=== PATIENT | female | born 1995 | race Caucasian/White ===

== ENCOUNTER 2017-12-05 12:58 | Inpatient (IN) | payer SELFPAY ==
[~2017-12-05] VITALS: Ht 160 cm; Wt 64.0 kg
[2017-12-05 13:04] VITALS: BP 129/85
--- NOTE | 2017-12-05 13:14 | NUR ---
PT AMBULATES TO BED 4
--- NOTE | 2017-12-05 13:21 | NUR ---
22YO F BIB BF W/C/O ABD PAIN X3 DAYS , RLQ PAIN TENDER TO PALPATION, SOFT ABD , N/D X3DAYS WITH 5 EPISODES OF WATERY STOOLS TODAY. PT DENIES ANY CP, SOB, VOMITING, FEVER OR COUGH AT THIS TIME, LS CLEAR THROUGHOUT, RR EVEN AND UNLABORED, THACHYCARDIA WITH HR 112. PT POSITIONED FOR COMFORT. ER MD MADE AWARE. WILL CONTINUE TO MONITOR. PAIN 11/04
--- NOTE | 2017-12-05 14:30 | NUR ---
pt. resting comfortably in bed , rr even and unlabored. at bedside. will continue to monitor.
[2017-12-05] MEDS ORDERED: NACL 0.9% 1,000 ML IV ONE (14:42)
[2017-12-05] MEDS ORDERED: NACL 0.9% 1,000 ML IV SCH ×2 (14:42)
[2017-12-05] MEDS ORDERED: MORPHINE SULFATE 2 MG/ML SYR IVP ONE (14:45)
[2017-12-05] MEDS ORDERED: ONDANSETRON 4 MG/2 ML VIAL IVP ONE (14:45)
[2017-12-05] MEDS ORDERED: metroNIDAZOLE 500 MG/NS PREMIX 100 ML IV ONE (14:45)
[2017-12-05] MEDS ORDERED: KETOROLAC 30 MG/ML VIAL IVP ONE (14:45)
[2017-12-05 15:02] LABS: BASOPHILS % (AUTO) 0.2 % (0.0-2.0); HEMATOCRIT 41.2 % (36-48); LYMPHOCYTES # (AUTO) 1.2 K/uL (2.5-16.5); LYMPHOCYTES % (AUTO) 15.7 % (20.5-51.1); MEAN CORPUSCULAR HEMOGLOBIN 27 pg (27-31); MEAN CORPUSCULAR HGB CONC 34 g/dL (33-37); MEAN CORPUSCULAR VOLUME 80.9 fL (80-94); MONOCYTES % (AUTO) 13.6 % (1.7-9.3); NEUTROPHILS # (AUTO) 5.2 K/uL (1.8-7.7); NEUTROPHILS % (AUTO) 70.5 % (42.2-75.2); PLATELET COUNT (AUTO) 244 K/uL (140-450); RED CELL DISTRIBUTION WIDTH 13.9 % (11.6-13.7); WHITE BLOOD COUNT (AUTO) 7.4 K/uL (4.8-10.8)
[2017-12-05 15:05] LABS: APPEARANCE,URINE HAZY (CLEAR); BILIRUBIN,URINE 1+ (NEGATIVE); BLOOD, URINE 1+ (NEGATIVE); COLOR,URINE YELLOW (YELLOW); LEUKOCYTE ESTERASE ,URINE NEGATIVE (NEGATIVE); NITRITE, URINE NEGATIVE (NEGATIVE); UGLUCOSE NEGATIVE (NEGATIVE)
[2017-12-05 15:19] LABS: RBC,URINE 0-5 (RARE) /HPF (0-5); WBC,URINE 0-5 (RARE) /HPF (0-5)
--- NOTE | 2017-12-05 15:30 | NUR ---
Pt. sleeping at this time. at bedside. vss. Will continue to monitor. bed in lowest position.
[2017-12-05 15:32] LABS: ANION GAP 13.1 (8-16); CREATININE 0.5 mg/dL (0.6-1.3); POTASSIUM 3.1 mmol/L (3.5-5.1)
[2017-12-05 15:38] LABS: ALBUMIN 3.6 g/dL (3.4-5.0); TOTAL BILIRUBIN 0.5 mg/dL (0.0-1.0)
[2017-12-05] MEDS ORDERED: POTASSIUM CHL 20 MEQ/D5-1/2NS 1,000 ML IV ONE (16:25)
--- NOTE | 2017-12-05 16:30 | NUR ---
PT. IS AWAKE , VSS. RR EVEN AND UNLABORED. BED IN LOWEST POSITION WILL CONTINUE TO MONITOR.
[2017-12-05] MEDS ORDERED: ONDANSETRON 4 MG/2 ML VIAL IM/IVP PRN (17:05)
[2017-12-05] MEDS ORDERED: HYDROcodone/APAP 7.5/325 MG 1 TAB PO PRN (17:05)
[2017-12-05] MEDS ORDERED: DOCUSATE SODIUM 100 MG GELCAP PO PRN (17:05)
[2017-12-05] MEDS ORDERED: ACETAMINOPHEN 325 MG TAB PO PRN (17:05)
--- NOTE | 2017-12-05 18:03 | NUR ---
PT TAKEN TO FLOOR BY JAYSHREE MCKAY AND AUGUSTO HAWKINS
[2017-12-05 18:05] LABS: BARBITURATE, URINE NEG. ng/ml (NEG <=200); BENZODIAZEPINE, URINE NEG. ng/mL (NEG <=200); CANNABINOID, URINE NEG. ng/mL (NEG <=50); COCAINE, URINE NEG. ng/mL (NEG <=300); OPIATE, URINE NEG. ng/mL (NEG <=2000); PHENCYCLIDINE SCREEN,URINE NEG. ng/mL (NEG <=25)
[2017-12-05] MEDS ORDERED: POTASSIUM CHLORIDE 10 MEQ TABER PO SCH (18:07)
[2017-12-05 18:08] LABS: PROTHROMBIN TIME 10.5 secs (10.8-13.4)
[2017-12-05 18:10] VITALS: BP 115/74
--- NOTE | 2017-12-05 18:10 | NUR ---
Patient will be admitted to care of dr. RIVERA . Admited to TELE . Will go to room 125B. Belongings list completed. Report to JAYSHREE CURRAN .
--- NOTE | 2017-12-05 18:10 | NUR ---
PATIENT WAS TRANSFERRED FROM ER. REPORT WAS GIVEN AT BEDSIDE. PATIENT AWAKE, ALERT, AMBULATED SELF TO BED. ASSISTANT PLANT CONTROL OPERATOR WAS PLACED. VS WAS TAKEN, MRSA WAS SWABBED, IV FLUID WAS HUNG PER ORDER. PATIENT WAS ORIENTED TO ROOM, STAFF, AND CALL LIGHT. PLAN OF CARE WAS DISCUSSED WITH THE PATIENT. BED AT LOW POSITION, SIDE RAILS UP. CALL LIGHT WITHIN REACH. FAMILY AT BEDSIDE
[2017-12-05 18:16] LABS: CHOL/HDL RATIO 2.7 (1-4.5); MAGNESIUM 1.8 mg/dL (1.8-2.4); PHOSPHORUS 2.1 mg/dL (2.5-4.9); THYROID STIMULATING HORMONE 0.95 uIU/mL (0.34-3.74)
[2017-12-05 18:42] LABS: FREE T4 (FREE THYROXINE) 1.26 ng/dL (0.76-1.46)
[2017-12-05] MEDS ORDERED: KETOROLAC 15 MG/ML VIAL IM PRN (19:05)
--- NOTE | 2017-12-05 19:16 | NUR ---
ENDORSEMENT GIVEN TO THE FIELD RADIO OPERATOR NURSE. PATIENT IS STABLE AT THIS TIME.
--- NOTE | 2017-12-05 19:17 | NUR ---
RECEIVED REPORT FROM DAY SHIFT NURSE JOSEPH-RN AT BEDSIDE. PT RESTING IN BED, AOX4 WITH FAMILY AT BEDSIDE. ON ROOM AIR WITH LEFT AC #20G RUNNING K-RIDER AT 100ML/HR. DISCUSSED PLAN OF CARE AND PT VERBALIZED UNDERSTANDING. NO S/S OF RESPIRATORY DISTRESS OR DISCOMFORT NOTED AT THIS TIME. BED IN LOWEST POSITION, BED BREAKS ON, BOTH SIDE RAILS UP. BEDSIDE TABLE AND CALL LIGHT ARE WITHIN REACH. WILL CONTINUE TO MONITOR.
[2017-12-05 20:00] VITALS: BP 110/65
--- NOTE | 2017-12-05 20:00 | NUR ---
VITAL SIGNS TAKEN AND TOLERATED WELL. NO S/S OF RESPIRATORY DISTRESS OR DISCOMFORT NOTED AT THIS TIME. WILL CONTINUE TO MONITOR.
[2017-12-05] MEDS: SODIUM PHOS / POTASSIUM PHOS 1 PKT PDR PO SCH (20:56)
--- NOTE | 2017-12-05 20:56 | NUR ---
SCHEDULED MEDICATION NEUTRA-PHOS GIVEN AND TOLERATED WELL. NO S/S OF RESPIRATORY DISTRESS OR DISCOMFORT NOTED AT THIS TIME. WILL CONTINUE TO MONITOR.
--- NOTE | 2017-12-05 23:00 | NUR ---
PT SLEEPING IN BED. NO S/S OF RESPIRATORY DISTRESS OR DISCOMFORT NOTED AT THIS TIME. WILL CONTINUE TO MONITOR.
[2017-12-06] VITALS: BP 97/53
--- NOTE | 2017-12-06 | NUR ---
VITAL SIGNS TAKEN AND TOLERATED WELL. NO S/S OF RESPIRATORY DISTRESS OR DISCOMFORT NOTED AT THIS TIME. WILL CONTINUE TO MONITOR.
--- NOTE | 2017-12-06 02:00 | NUR ---
PT CONTINUES TO SLEEP IN BED. NO S/S OF RESPIRATORY DISTRESS OR DISCOMFORT NOTED AT THIS TIME. WILL CONTINUE TO MONITOR.
--- NOTE | 2017-12-06 02:00 | NUR ---
K-RIDER CONTINUES TO INFUSE. AN ESTIMATED 300ML STILL NEEDED TO INFUSE. WILL ADMINISTER IVF ONCE K-RIDER IS COMPLETED.
[2017-12-06] MEDS ORDERED: NACL 0.9% 1,000 ML IV SCH (02:30)
--- NOTE | 2017-12-06 04:00 | NUR ---
VITAL SIGNS TAKEN AND TOLERATED WELL. K-RIDER CONTINUES TO INFUSE. NO S/S OF RESPIRATORY DISTRESS OR DISCOMFORT NOTED AT THIS TIME. WILL CONTINUE TO MONITOR.
--- NOTE | 2017-12-06 05:29 | NUR ---
SCHEDULED MEDICATION IVF GIVEN AND TOLERATED WELL. NO S/S OF RESPIRATORY DISTRESS OR DISCOMFORT NOTED AT THIS TIME. WILL CONTINUE TO MONITOR.
[2017-12-06 06:19] LABS: T4 (THYROXINE) 9.5 ug/dL (4.5-12.0)
--- NOTE | 2017-12-06 07:18 | NUR ---
ENDORSED PT CARE TO DAY SHIFT NURSE SAMANTHA-RN FOR CONTINUITY OF CARE.
--- NOTE | 2017-12-06 07:19 | NUR ---
RECEIVED REPORT FROM LOCKSTITCH ZIPPER SETTER NURSE AT BEDSIDE FOR CONTINUITY OF CARE. PATIENT AOX4, AT BEDSIDE. RESPIRATIONS EVEN AND UNLABORED ON ROOM AIR. PATIENT DENIES PAIN. IV SITE PATENT, INTACT, AND ASYMPTOMATIC, INFUSING IVF WELL. UPDATED BOARD. VERBALIZED PLAN OF CARE WITH PATIENT. SHE AND VERBALIZED UNDERSTANDING. SAFETY PRECAUTION IN PLACE, CALL LIGHT WITHIN REACH, WILL CONTINUE TO MONITOR PATIENT.
[2017-12-06 08:00] VITALS: BP 98/47
[2017-12-06] MEDS: SODIUM PHOS / POTASSIUM PHOS 1 PKT PDR PO SCH ×2 (08:16→11:38)
--- NOTE | 2017-12-06 08:19 | NUR ---
ORDERED MEDICATIONS GIVEN. PATIENT TOLERATED IT WELL. PATIENT FINISHED HER CLEAR LIQUID BREAKFAST. AT BEDSIDE. UPDATED HER ON IMPENDING DISCHARGE AFTER LUNCH. SHE AND VERBALIZED UNDERSTANDING. WILL CONTINUE TO MONITOR PATIENT.
--- NOTE | 2017-12-06 08:50 | NUR ---
PATIENT HAS BEEN SCREENED AND CATEGORIZED HIGH NUTRITION RISK. PATIENT WILL BE SEEN WITHIN 1-2 DAYS OF ADMISSION. 12/06/17 12/07/[address]
--- NOTE | 2017-12-06 09:46 | NUR ---
CALLED LAB, ASKED ABOUT PATIENT'S AM LABS, RESULTS STILL NOT OUT YET. SPOKE TO LUIS CARLOS, SHE SAID NO AM LABS DRAWN. SPOKE TO NATHALIA, HE SAID HE WILL DRAW SAMPLES. INFORMED PATIENT AND HER ABOUT PENDING DISCHARGE BUT AFTER RESULTS OF AM LABS. THEY VERBALIZED UNDERSTANDING. WILL CONTINUE TO MONITOR PATIENT.
[2017-12-06 10:44] LABS: BASOPHILS % (AUTO) 0.3 % (0.0-2.0); EOSINOPHILS % (AUTO) 0.2 % (0.0-4.0); HEMATOCRIT 37.2 % (36-48); HEMOGLOBIN 12.5 g/dL (12.0-16.0); LYMPHOCYTES # (AUTO) 1.1 K/uL (2.5-16.5); LYMPHOCYTES % (AUTO) 15.8 % (20.5-51.1); MEAN CORPUSCULAR HEMOGLOBIN 27 pg (27-31); MEAN CORPUSCULAR HGB CONC 34 g/dL (33-37); MEAN CORPUSCULAR VOLUME 81.1 fL (80-94); MONOCYTES # (AUTO) 1.4 K/uL (0.8-1.0); MONOCYTES % (AUTO) 20.5 % (1.7-9.3); NEUTROPHILS # (AUTO) 4.4 K/uL (1.8-7.7); NEUTROPHILS % (AUTO) 63.2 % (42.2-75.2); PLATELET COUNT (AUTO) 205 K/uL (140-450); RED BLOOD CELL COUNT(AUTO) 4.59 MIL/uL (4.20-5.40); RED CELL DISTRIBUTION WIDTH 13.8 % (11.6-13.7)
[2017-12-06 10:49] LABS: ANION GAP 10.7 (8-16); CARBON DIOXIDE 24.9 mmol/L (21-32); CREATININE 0.6 mg/dL (0.6-1.3); POTASSIUM 3.6 mmol/L (3.5-5.1)
[2017-12-06 10:53] LABS: MAGNESIUM 1.9 mg/dL (1.8-2.4); PHOSPHORUS 1.8 mg/dL (2.5-4.9)
[2017-12-06] MEDS ORDERED: SODIUM PHOS / POTASSIUM PHOS 1 PKT PDR PO SCH (11:30)
--- NOTE | 2017-12-06 11:30 | NUR ---
ORDERED MEDICATION GIVEN. PATIENT TOLERATED IT WELL. DISCHARGE INSTRUCTIONS AND EDUCATION GIVEN TO PATIENT. INSTRUCTION ABOUT MD FOLLOW UP AND DIET TYPE. AT BEDSIDE. THEY BOTH VERBALIZED UNDERSTANDING. IV REMOVED, IV CATHETER INTACT, MINIMAL BLEEDING NOTED. ID BANDS REMOVED. PATIENT WILL NOW CHANGE INTO HER OWN CLOTHING AND INSTRUCTED TO CALL RN WHEN READY TO BE DISCHARGED.
[2017-12-06 11:35] VITALS: BP 104/48
--- NOTE | 2017-12-06 12:05 | NUR ---
PATIENT AMBULATED OFF FLOOR WITH , PATIENT TOOK ALL OF HER BELONGINGS WITH HER. PATIENT IN STABLE CONDITION.
[2017-12-06 12:22] LABS: CHOL/HDL RATIO 3.5 (1-4.5)
== END 2017-12-06 12:05 | disposition home or self-care (01) | DRG 392 ==
LOC: MED 12:58 → MMU 17:12
PROVIDERS: ADMIT General Practice; ATTEND General Practice
DX: A08.39 Other viral enteritis (principal); E87.1 Hypo-osmolality and hyponatremia; E87.6 Hypokalemia; E86.0 Dehydration; E83.39 Other disorders of phosphorus metabolism; R74.0 Nonspecific elevation of levels of transaminase and lactic acid dehydrogenase [LDH]
CPT/HCPCS: 36415; 71045; 76856; 80048; 80053; 80305; 81001; 81025; 82150; 83036; 83690; 83735; 83880; 84100; 84436; 84439; 84443; 84479; 84484; 84703; 85025; 85610; 85730; 87081; 96365; 96367; 96375; 99285; J1885; J2270; J2405; J3490; J7030; Q0092